=== PATIENT | male | born 2000 ===

== ENCOUNTER → 2022-08-05 10:12 | Outpatient (BNVA) | payer BC, SELFPAY | PROVIDERS: Visit Provider Nurse Practitioner Family | DX: S69.91XA Unspecified injury of right wrist, hand and finger(s), initial encounter (principal); W22.09XA Striking against other stationary object, initial encounter | CPT/HCPCS: 73130 ==

== ENCOUNTER 2024-09-08 12:08 | Emergency (ER) | payer SELFPAY ==
[2024-09-08 12:16] VITALS: BP 127/88; PULSE 115; RESP 18; TEMP 36.7; O2SAT 96; BMI 22.7
--- NOTE | 2024-09-08 12:44 | ED_ITS ---
HPI - Anxiety General: Chief Complaint: Anxiety Stated Complaint: seeing thing that arent there,confused,anxiety Time Seen by Provider: 09/08/24 12:41 History of Present Illness: 23-year-old male who presents to the [facility] room with reports of hallucinations. He says he is hearing things. He says he does not know what is real and what is not. He has no suicidal or homicidal ideations. He says he used to get like this when he was on drugs but he has not done any drugs today. He says he smokes some marijuana. He is quite anxious. He says he wants somebody to talk to. We agreed to give him some Ativan and he will go to the crisis center. Related Data Home Medications ?Medication ?Instructions ?Recorded ?Confirmed No Known Home Medications 12/11/2112/20 Allergies Allergy/AdvReac Type Severity Reaction Status Date / Time No Known Allergies Allergy Verified 08/05/22 09:41 Review of Systems Narrative: Constitutional symptoms: Negative except as documented in HPI. Skin symptoms: Negative except as documented in HPI. Eye symptoms: Negative except as documented in HPI. ENMT symptoms: Negative except as documented in HPI. Respiratory symptoms: Negative except as documented in HPI. Cardiovascular symptoms: Negative except as documented in HPI. Gastrointestinal symptoms: Negative except as documented in HPI. Genitourinary symptoms: Negative except as documented in HPI. Musculoskeletal symptoms: Negative except as documented in HPI. Neurologic symptoms: Negative except as documented in HPI. Psychiatric symptoms: Negative except as documented in HPI. Endocrine symptoms: Negative except as documented in HPI. Physical Exam Narrative: EXAM NARRATIVE: General: Alert, no acute distress. Skin: warm and dry Head: Normocephalic Neck: Trachea midline Eye: Extraocular movements are intact. Ears, nose, mouth and throat: Oral mucosa moist Respiratory: Respirations are non-labored Musculoskeletal: Normal ROM Gastrointestinal: Abdomen does not appear distended Neurological: Alert and oriented, No focal neurological deficit observed. Psychiatric: Cooperative, patient is very anxious. Course Vital Signs: Vital signs: Vital Signs Temperature 98.1 F 09/08/24 12:16 Pulse Rate 115 H 09/08/24 12:16 Respiratory Rate 18 09/08/24 12:16 Blood Pressure 127/88 09/08/24 12:16 Pulse Oximetry 96 09/08/24 12:16 Oxygen Delivery Me thod Room Air 09/08/24 12:16 MDM - Anxiety Medical Decision Making Assessment and plan: Anxiety ? IM Ativan. Patient to go directly to the crisis center. - Discharged home - Discussed plan with patient. Answered any questions. - Evaluation and treatment of this problem were appropriate in the emergency s etting. No radiology studies performed this visit Discharge Plan Discharge Patient Disposition: Home Clinical Impression: Acute anxiety Condition: Stable Prescriptions: No Action No Known Home Medications Discharge Orders: Discharge ED (Routine); Ordered 09/08/24 Ordered By: Jodi Rojas Discharge Diet: Usual diet Discharge Activity: Increase activity as tolerated Patient Instructions: Opioid Safety, Pain Management Activity Restrictions/Additional Instructions: Please follow-up with the [facility] behavioral [facility] crisis center immediately after discharge from the emergency room. Phone number is [phone]. There is a 24-hour crisis hotline with the number of [phone]. Hours of operation are 8 AM to 6 PM. Thank you for choosing [facility] for your healthcare needs today. Please realize this is an emergency room and that we are providing you with a medical screening exam and this may not be complete and all inclusive of all the testing and or work up that you may need to determine your ailment or severity of your illness. You have been screened and evaluated and felt safe for discharge. Health c onditions do change or evolve sometimes and as such it is important that you follow up with your Primary Doctor to be re checked, 3-5 days is a general good time frame for follow up. You are always welcome to return to the ED for re assessment if your symptoms are worsening or you have new concerns Print Language: Omani Coding Level of Care Code ED Rug Repairer for Haris Ibarra
[2024-09-08] MEDS: LORazepam 1 MG/0.5 ML injection IM (13:04)
[2024-09-08 13:08] VITALS: BP 131/74; PULSE 110; O2SAT 98
== END 2024-09-08 13:08 | disposition home or self-care (01) ==
PROVIDERS: Emergency Provider Emergency Medicine
DX: F41.9 Anxiety disorder, unspecified (principal); R44.0 Auditory hallucinations
CPT/HCPCS: 96372; 99284; J2060